=== PATIENT | female | born 1995 | race Caucasian/White ===

== ENCOUNTER 2021-07-16 21:26 | Emergency (ER) | payer BC, OTHER ==
[2021-07-16 23:09] LABS: HCG UR QUAL NEGATIVE
[2021-07-17 01:05] LABS: BASOPHILS % (AUTO) 0.2 %; EOSINOPHILS # (AUTO) 0.2 10^3/uL (0.0-0.7); EOSINOPHILS % (AUTO) 1.9 %; HCT - HEMATOCRIT 39.8 % (37.0-47.0); HGB - HEMOGLOBIN 13.4 g/dL (12.0-16.0); LYMPHOCYTES % (AUTO) 33.1 %; MEAN CORPUSCULAR HEMOGLOBIN 29.3 pg (27.0-31.0); MEAN CORPUSCULAR HGB CONC 33.7 g/dL (32.0-36.0); MEAN CORPUSCULAR VOLUME 87.1 fL (81.0-99.0); MEAN PLATELET VOLUME 11.2 fL (7.9-10.8); MONOCYTES # (AUTO) 0.7 10^3/uL (0.0-1.0); MONOCYTES % (AUTO) 8.1 %; NEUTROPHILS # (AUTO) 5.1 10^3/uL (1.5-6.6); NEUTROPHILS % (AUTO) 56.3 %; PLT - PLATELET COUNT 232 10^3/uL (130-450); RED BLOOD COUNT 4.57 10^6/uL (4.20-5.40); RED CELL DISTRIBUTION WIDTH 12.8 % (12.0-15.0)
--- NOTE | 2021-07-17 01:18 | ED Physician Documentation ---
PD HPI FEMALE - Stated complaint Stated Complaint: FEMALE - Chief complaint Chief Complaint: Abd Pain - History obtained from History obtained from: Patient - Additional information Additional information: Patient comes to the emergency department with chief complaint of vaginal bleeding for 2 weeks. Patient states that she has been using as many as 4-5 tampons a day and that she is currently on control. She states that she normally on the control pills has a menstrual period once a month. However, she states she was trying to skip the period this month, but ended up bleeding more heavily, Started 2 weeks ago. Patient states there is some waxing and waning of the bleeding. She thinks she may feel a little tired and short of breath but it is hard to say. The patient denies any dysuria. No fever or chills. No other complaints at this time. Does not have any history of uterine structural abnormalities. She has never had a fibroid before. She states that before getting on hormonal control, she used to have 2 periods a month. [place]. She had a Pap smear within the last year. Review of Systems Ten Systems: 10 systems reviewed and negative Constitutional: reports: Reviewed and negative Eyes: reports: Reviewed and negative Ears: reports: Reviewed and negative Nose: reports: Reviewed and negative Throat: reports: Reviewed and negative Cardiac: reports: Reviewed and negative Respiratory: reports: Reviewed and negative GI: reports: Reviewed and negative. denies: Abdominal Pain : reports: Vaginal bleeding Skin: reports: Reviewed and negative Musculoskeletal: reports: Reviewed and negative Neurologic: reports: Reviewed and negative Psychiatric: reports: Reviewed and negative Endocrine: reports: Reviewed and negative Immunocompromised: reports: Reviewed and negative PD PAST MEDICAL HISTORY - Past Medical History Past Medical History: No Cardiovascular: None Respiratory: None Neuro: None Endocrine/Autoimmune: None GI: None FOUNDRY TENDER: None : None HEENT: None Psych: None Musculoskeletal: None Derm: None - Past Surgical History Past Surgical History: No - Allergies Allergies/Adverse Reactions: Allergies Allergy/AdvReac Type Severity Reaction Status Date / Time No Known Drug Allergies Allergy Verified 07/16/21 21:47 - Social History Does the pt smoke?: No Smoking Status: Never smoker Does the pt drink ETOH?: Yes Does the pt have substance abuse?: No - Immunizations Immunizations are current?: No - POLST Patient has POLST: No PD ED PE NORMAL - Vitals Vital signs reviewed: Yes - General General: Alert and oriented X 3, No acute distress, Well developed/nourished - HEENT HEENT: Atraumatic, PERRL, EOMI, Moist mucous membranes - Neck Neck: Supple, no meningeal sign - Cardiac Cardiac: RRR, No murmur, No gallop, No rub, Strong equal pulses, Other - Respiratory Respiratory: No respiratory distress, Clear bilaterally - Abdomen Abdomen: Soft, Non tender, Non distended - Female Female : Lead Manufacturing Engineering Tech present, Other (Normal female genitalia. Scant amount of brown-tinged discharge coming from the vaginal canal. Cervical morphology is normal in appearance.) - Derm Derm: Normal color, Warm and dry, No rash - Extremities Extremities: No deformity, No edema - Neuro Neuro: Alert and oriented X 3, healthcare recruiter 2-12 intact, Normal speech, Other (Grossly normal) - Psych Psych: Normal mood, Normal affect Results - Vitals Vitals: Vital Signs - 24 hr 07/16/21 07/17/21 21:42 01:25 Temperature 36.6 C Heart Rate 78 62 Respiratory 16 18 Rate Blood Pressure 134/75 H 116/80 O2 Saturation 100 100 Oxygen O2 Source Room air - Labs Labs: Laboratory Tests 07/16/21 07/17/21 22:56 01:00 WBC 9.0 RBC 4.57 Hgb 13.4 Hct 39.8 MCV 87.1 MCH 29.3 MCHC 33.7 RDW 12.8 Plt Count 232 MPV 11.2 H Neut # (Auto) 5.1 Lymph # (Auto) 3.0 [place] # (Auto) 0.7 Eos # (Auto) 0.2 Baso # (Auto) 0.0 Absolute Nucleated RBC 0.00 Nucleated RBC % 0.0 Urine HCG, Qual NEGATIVE PD MEDICAL DECISION MAKING - ED course Complexity details: reviewed old records, reviewed results, re-evaluated patient, considered differential, d/w patient ED course: Patient was worked up with a CBC, which showed a hemoglobin of 13.4. test was negative here. I did not feel at this point the imaging was indicated. I discussed with the patient that her red blood cell levels are normal at this point and that she can speak with her perforator typist about whether she should continue the current hormonal control or switch to different one that gives her better results. Patient states she will follow-up with her doctor soon as possible this week. Departure - Departure Disposition: 01 Home, Self Care Clinical Impression: Dysfunctional uterine bleeding Condition: Stable Instructions: ED Bleed Irregular Vaginal Comments: Your red blood cell levels look very good tonight. It is not clear why you are bleeding, but most likely, there is a hormonal imbalance. Please call your doctor first thing in the morning to set up a follow-up appointment to discuss what to do about your bleeding. Discharge Date/Time: 07/17/21 01:25
[2021-07-17 01:27] VITALS: BP 116/80
== END 2021-07-17 01:25 | disposition home or self-care (01) ==
LOC: ED 21:26
DX: N93.8 Other specified abnormal uterine and vaginal bleeding (principal)
CPT/HCPCS: 36415; 81025; 85025; 99282; 99283

== ENCOUNTER 2023-12-25 08:00 | Outpatient (CLI) | payer BC, OTHER | END 2023-12-25 23:59 | disposition home or self-care (01) | LOC: LAB.N 08:00 | PROVIDERS: ATTEND Physician Assistant Medical | DX: R30.0 Dysuria (principal) | CPT/HCPCS: 87086 ==